=== PATIENT | female | born 1980 | race Caucasian/White ===

== ENCOUNTER 2017-01-29 18:06 | Emergency (ER) | payer MEDICAID ==
[~2017-01-29] VITALS: Ht 165.1 cm; Wt 68.0 kg
[~2017-01-29 18:06] MED LIST: ALPR0.5T10 PO; ALPR1TAB6 PO; AMIT10TA PO; ARIP2TAB2 PO; LEVO750T26 PO; LITH300T30 PO; LITH600C PO; MELO7.5T31 PO; MORP30CP12 PO; NAPR-850 PO; NITR100C6 PO; OXYC10TA6 PO; OXYC15TA60 PO; OXYC20TA2 PO; RISP1TAB3 PO; SENN1TAB7 PO; TOPI200T6 PO; ZOLP-413 PO; ZOLP10TA5 PO
[2017-01-29] MEDS ORDERED: MORPHINE SULFATE 4 MG/ML, 1ML IVPush PRN (19:30)
[2017-01-29] MEDS ORDERED: ONDANSETRON 2MG/ML, 2ML IVPush ONE (19:30)
[2017-01-29] MEDS ORDERED: ONDANSETRON 2MG/ML, 2ML ONE (19:34)
[2017-01-29] MEDS ORDERED: MORPHINE SULFATE 4 MG/ML, 1ML ONE (19:34)
[2017-01-29 19:38] LABS: HEMATOCRIT 41.2 % (34.6-47.8); HEMOGLOBIN 13.7 g/dL (11.7-16.4); WHITE BLOOD COUNT 12.5 x10^3/uL (3.4-10)
[2017-01-29 19:48] LABS: ASPARTATE AMINO TRANSFERASE 9 U/L (15-37); BLOOD UREA NITROGEN 12 mg/dL (7-18)
[2017-01-29 20:52] VITALS: BP 111/72
== END 2017-01-29 22:47 | disposition home or self-care (01) ==
LOC: ED 20:34
DX: R10.9 Unspecified abdominal pain (principal); F31.9 Bipolar disorder, unspecified; F41.9 Anxiety disorder, unspecified; G89.29 Other chronic pain; Z87.891 Personal history of nicotine dependence; Z90.710 Acquired absence of both cervix and uterus
CPT/HCPCS: 36415; 76700; 80053; 81001; 83690; 84703; 85025; 96374; 96375; 99285; J2405

== ENCOUNTER 2017-02-23 16:32 | Emergency (ER) | payer MEDICAID ==
[~2017-02-23] VITALS: Ht 175.3 cm; Wt 76.8 kg
[2017-02-23 17:16] LABS: HEMOGLOBIN 13.5 g/dL (11.7-16.4); WHITE BLOOD COUNT 10.3 x10^3/uL (3.4-10)
[2017-02-23 17:26] LABS: BLOOD UREA NITROGEN 21 mg/dL (7-18)
[2017-02-23 17:33] LABS: ACETAMINOPHEN < 2 mcg/mL (10-30)
[2017-02-23 18:07] LABS: DAU SCREEN DISCLAIMER
[2017-02-23 19:37] VITALS: BP 110/50
== END 2017-02-23 21:43 | disposition home or self-care (01) ==
LOC: ED 18:20
DX: T42.4X1A Poisoning by benzodiazepines, accidental (unintentional), initial encounter (principal); F31.9 Bipolar disorder, unspecified; Y92.89 Other specified places as the place of occurrence of the external cause
CPT/HCPCS: 36415; 80048; 80307; 80329; 82040; 84703; 85025; 93005; 99285; G0479; G0480

== ENCOUNTER 2017-04-10 08:14 | Emergency (ER) | payer MEDICAID ==
[~2017-04-10] VITALS: Ht 167.6 cm; Wt 69.0 kg
[~2017-04-10 08:14] MED LIST changes: +HYDR50TA13 PO; +TRAZ100T15 PO
[2017-04-10 08:15] VITALS: BP 112/72
== END 2017-04-10 10:01 | disposition home or self-care (01) ==
LOC: ED 10:00
DX: H01.001 Unspecified blepharitis right upper eyelid (principal)
CPT/HCPCS: 99283

== ENCOUNTER 2017-04-16 09:22 | Emergency (ER) | payer MEDICAID ==
[~2017-04-16] VITALS: Ht 165.1 cm; Wt 66.2 kg
[2017-04-16 09:24] VITALS: BP 124/77
[2017-04-16] MEDS ORDERED: SODIUM CHLORIDE FLUSH 10ML SYR IVF ONE (10:00)
[2017-04-16 10:05] LABS: WHITE BLOOD COUNT 19.4 x10^3/uL (3.4-10)
[2017-04-16 10:37] LABS: BLOOD UREA NITROGEN 21 mg/dL (7-18)
[2017-04-16] MEDS ORDERED: OMNIPAQUE 350 MG/ML, 75ML BOTTLE ONE (10:56)
== END 2017-04-16 12:12 | disposition home or self-care (01) ==
LOC: ED 09:37
DX: J01.10 Acute frontal sinusitis, unspecified (principal); F41.9 Anxiety disorder, unspecified; F31.9 Bipolar disorder, unspecified; M19.90 Unspecified osteoarthritis, unspecified site
CPT/HCPCS: 36415; 70487; 80048; 82040; 85025; 85651; 99285; Q9967

== ENCOUNTER 2017-05-03 10:12 | Emergency (ER) | payer MEDICAID ==
[~2017-05-03] VITALS: Ht 167.6 cm; Wt 68.9 kg
[2017-05-03] MEDS ORDERED: LIDOCAINE 1%, 10ML ONE (11:17)
[2017-05-03] MEDS ORDERED: LIDOCAINE 1%, 20ML INFIL ONE (11:30)
[2017-05-03 11:52] VITALS: BP 119/59
== END 2017-05-03 11:55 | disposition home or self-care (01) ==
LOC: ED 11:49
DX: H00.033 Abscess of eyelid right eye, unspecified eyelid (principal); F31.9 Bipolar disorder, unspecified; F41.9 Anxiety disorder, unspecified; M19.90 Unspecified osteoarthritis, unspecified site; G89.29 Other chronic pain; Z87.891 Personal history of nicotine dependence
CPT/HCPCS: 10160

== ENCOUNTER 2017-05-30 12:28 | Day surgery (SDC) | payer MEDICAID ==
[~2017-05-30] VITALS: Ht 167.6 cm; Wt 70.8 kg
[~2017-05-30 12:28] MED LIST changes: +BACITRACIN OINT 500U/GM, 15 GM ONE; +CEFAZOLIN 1,000 MG ONE; +DEXAMETHASONE 4 MG/ML, 1ML ONE; +EPINEPHRINE 1 MG/ML, 1ML ONE; +FENTANYL PF 250 MCG/5ML ONE; +LIDOCAINE GEL 2%, 5ML ONE; +LIDOCAINE/PF 1%-EPI 1:200K, 30 ML ONE; +MIDAZOLAM 1 MG/ML, 2ML ONE; +ONDANSETRON 2MG/ML, 2ML ONE; +OXYMETAZOLINE NASAL SPRAY 0.05%, 15ML ONE; +PROPOFOL 10 MG/ML, 20ML ONE; +SUCCINYLCHOLINE 20 MG/ML, 10ML ONE
[2017-05-30 12:58] VITALS: BP 113/76
[2017-05-30] MEDS ORDERED: LIDOCAINE 1%, 2ML SQ PRN (13:00)
[2017-05-30] MEDS ORDERED: PLEASE ENTER HEIGHT AND WEIGHT MC SCH (13:00)
[2017-05-30] MEDS ORDERED: ARIP30TA4 PO (13:07)
[2017-05-30] MEDS: LACTATED RINGERS 1,000 ML IV SCH ×2 (13:15→21:02)
[2017-05-30] MEDS ORDERED: SULF1TAB24 PO (13:26)
[2017-05-30] MEDS ORDERED: TOPI200T6 PO (13:26)
[2017-05-30] MEDS ORDERED: ROCURONIUM 10 MG/ML,10ML ONE (14:01)
[2017-05-30] MEDS ORDERED: FLUORESCEIN OPHTHALMIC 1 MG STRIP HOMEOPHTH ONE (14:38)
[2017-05-30] MEDS ORDERED: EPINEPHRINE TOPICAL SOLN 1 MG/ML, 30ML TP ONE (14:38)
[2017-05-30] MEDS ORDERED: ACETAMINOPHEN 325 MG TABLET PO PRN (15:00)
[2017-05-30] MEDS ORDERED: OXYcodone 5 MG/5 ML ORAL.SOL UDC PO PRN (15:00)
[2017-05-30] MEDS ORDERED: HYDROmorphone 1 MG/ML, 1ML IV PRN (15:00)
[2017-05-30] MEDS ORDERED: METOCLOPRAMIDE 5 MG/ML, 2ML IV PRN (15:00)
[2017-05-30] MEDS ORDERED: hydrALAzine 20 MG/ML, 1ML IV PRN (15:00)
[2017-05-30] MEDS ORDERED: PROMETHAZINE 25 MG/ML, 1ML IV PRN (15:00)
[2017-05-30] MEDS ORDERED: LABETALOL 5MG/ML, 20ML IV PRN (15:00)
[2017-05-30] MEDS ORDERED: MEPERIDINE/PF 25MG/0.5ML IVPush PRN (15:00)
[2017-05-30] MEDS ORDERED: LORazepam 2 MG/ML, 1ML IVPush PRN (15:00)
[2017-05-30] MEDS ORDERED: DIAZEPAM 5 MG/ML, 2ML IVPush PRN (15:00)
[2017-05-30] MEDS ORDERED: MIDAZOLAM 1 MG/ML, 2ML IV PRN (15:00)
[2017-05-30] MEDS ORDERED: ALBUTEROL/IPRATROPIUM 2.5MG/0.5MG, 3 ML NPPB PRN (15:00)
[2017-05-30] MEDS ORDERED: ONDANSETRON 2MG/ML, 2ML IVPush PRN (15:00)
[2017-05-30] MEDS ORDERED: FENTANYL PF 100 MCG/2ML ONE (16:29)
[2017-05-30] MEDS ORDERED: OXYcodone 5 MG/5 ML ORAL.SOL UDC ONE (16:29)
[2017-05-30] MEDS ORDERED: EPINEPHRINE TOPICAL SOLN 1 MG/ML, 30ML ONE (16:30)
[2017-05-30] MEDS ORDERED: FLUORESCEIN OPHTHALMIC 1 MG STRIP ONE (16:30)
[2017-05-30] MEDS: FENTANYL PF 100 MCG/2ML IV PRN ×2 (16:39→16:56)
[2017-05-30] MEDS ORDERED: morphine SULFATE 10 MG/ML, 1ML ONE (18:16)
[2017-05-30] MEDS ORDERED: morphine SULFATE 10 MG/ML, 1ML IVPush PRN (18:30)
[2017-05-30] MEDS ORDERED: LACTATED RINGERS 1,000 ML IV SCH (20:00)
[2017-05-30] MEDS ORDERED: MORPHINE SULFATE 4 MG/ML, 1ML IVPush PRN (20:00)
[2017-05-30] MEDS ORDERED: TRAZODONE 100MG TABLET PO PRN (20:00)
[2017-05-30] MEDS ORDERED: OXYcodone/APAP 5/325MG TABLET PO PRN (20:00)
[2017-05-30] MEDS ORDERED: TOPIRAMATE 100 MG TABLET PO SCH (21:00)
[2017-05-30] MEDS ORDERED: AMITRIPTYLINE 10 MG TABLET PO SCH (21:00)
[2017-05-30] MEDS ORDERED: hydrOXyzine 50MG TABLET PO SCH (21:00)
[2017-05-31] MEDS ORDERED: ARIPIPRAZOLE 15 MG TABLET PO SCH (09:00)
== END 2017-05-30 22:14 | disposition home or self-care (01) ==
LOC: OUT 12:28 → 4NOR 19:23 → OUT 22:14
PROVIDERS: ATTEND Otolaryngology
DX: J32.1 Chronic frontal sinusitis (principal); J32.0 Chronic maxillary sinusitis; J34.2 Deviated nasal septum; J34.1 Cyst and mucocele of nose and nasal sinus; J34.3 Hypertrophy of nasal turbinates
CPT/HCPCS: 30140; 30520; 31253; 31256; 61782; 87070; 87075; 87205; 88304; 88311; J0171; J0330; J0690; J1100; J2250; J2270; J2405; J2704; J3010; J3490; J7120

== ENCOUNTER 2017-06-14 10:23 | Inpatient (IN) | payer MEDICAID ==
[~2017-06-14] VITALS: Ht 167.6 cm; Wt 81.1 kg
[~2017-06-14 10:23] MED LIST changes: +ARIP30TA4 PO; -BACITRACIN OINT 500U/GM, 15 GM ONE; -CEFAZOLIN 1,000 MG ONE; -DEXAMETHASONE 4 MG/ML, 1ML ONE; -EPINEPHRINE 1 MG/ML, 1ML ONE; -FENTANYL PF 250 MCG/5ML ONE; -LIDOCAINE GEL 2%, 5ML ONE; -LIDOCAINE/PF 1%-EPI 1:200K, 30 ML ONE; -MIDAZOLAM 1 MG/ML, 2ML ONE; -ONDANSETRON 2MG/ML, 2ML ONE; -OXYMETAZOLINE NASAL SPRAY 0.05%, 15ML ONE; -PROPOFOL 10 MG/ML, 20ML ONE; -SUCCINYLCHOLINE 20 MG/ML, 10ML ONE; +SULF1TAB24 PO
[2017-06-14] MEDS ORDERED: MORPHINE SULFATE 4 MG/ML, 1ML ONE (11:55)
[2017-06-14] MEDS ORDERED: ONDANSETRON 2MG/ML, 2ML ONE (11:55)
[2017-06-14] MEDS ORDERED: ONDANSETRON 2MG/ML, 2ML IVPush ONE (12:00)
[2017-06-14] MEDS ORDERED: SODIUM CHLORIDE 0.9% 1,000ML IVBOLUS ONE (12:00)
[2017-06-14] MEDS ORDERED: MORPHINE SULFATE 4 MG/ML, 1ML IVPush PRN (12:00)
[2017-06-14] MEDS ORDERED: AMPICILLIN/SULBACTAM 3 GM in SODIUM CHLORIDE 0.9% 100 ML IV ONE (12:00)
[2017-06-14 12:12] LABS: BASOPHILS # (AUTO) 0.06 x10^3/uL (0-0.1); BASOPHILS % (AUTO) 0 % (0-1); EOSINOPHILS % (AUTO) 1 % (1-7); LYMPHOCYTES # (AUTO) 1.96 x10^3/uL (1-3.4); LYMPHOCYTES % (AUTO) 16 % (22-44); MD NO; MEAN CORPUSCULAR HEMOGLOBIN 27.6 pg (27.0-34.8); MEAN CORPUSCULAR HGB CONC 32.3 g/dL (32.4-35.8); MEAN CORPUSCULAR VOLUME 85.4 fL (80-100); MEAN PLATELET VOLUME 7.4 fL (7.4-10.4); MONOCYTES # (AUTO) 0.84 x10^3/uL (0.2-0.8); MONOCYTES % (AUTO) 7 % (2-9); NEUTROPHILS # (AUTO) 9.74 x10^3/uL (1.8-6.8); NEUTROPHILS % (AUTO) 77 % (42-75); PLATELET COUNT 380 x10^3/uL (130-400); RED CELL DISTRIBUTION WIDTH 18.1 % (9.6-15.2)
[2017-06-14] MEDS ORDERED: IBUP200T49 PO (12:16)
[2017-06-14] MEDS ORDERED: AMIT10TA PO (12:16)
[2017-06-14 12:19] LABS: ALBUMIN 3.7 g/dL (3.4-5.0); ANION GAP 9 mmol/L (5-15); CALCIUM 8.4 mg/dL (8.5-10.1); CHLORIDE 113 mmol/L (98-107); CREATININE 0.66 mg/dL (0.55-1.02)
[2017-06-14] MEDS ORDERED: ENALAPRILAT 1.25 MG/ML, 2ML IVPush PRN (12:30)
[2017-06-14] MEDS ORDERED: ONDANSETRON 2MG/ML, 2ML IVPush PRN (12:30)
[2017-06-14] MEDS ORDERED: ONDANSETRON ODT 4 MG PO PRN (12:30)
[2017-06-14] MEDS ORDERED: ACETAMINOPHEN 325 MG TABLET PO PRN (12:30)
[2017-06-14 12:49] VITALS: BP 101/65
[2017-06-14] MEDS ORDERED: AMPICILLIN/SULBACTAM 3 GM in SODIUM CHLORIDE 0.9% 100 ML IV SCH (13:00)
[2017-06-14] MEDS ORDERED: IBUPROFEN 600 MG TABLET PO PRN (13:00)
[2017-06-14 14:00] VITALS: BP 110/60
[2017-06-14] MEDS ORDERED: OMNIPAQUE 350 MG/ML, 75ML BOTTLE ONE (15:42)
[2017-06-14] MEDS: HYDROcodone/APAP 5/325 TABLET PO PRN ×2 (16:06→21:04)
[2017-06-14] MEDS: morphine SULFATE 10 MG/ML, 1ML IVPush PRN (18:08)
[2017-06-14 21:00] VITALS: BP 91/62
[2017-06-14] MEDS: AMITRIPTYLINE 10 MG TABLET PO SCH (21:03)
[2017-06-14] MEDS: ERTAPENEM 1 GM in SODIUM CHLORIDE 0.9% 50 ML IV SCH (21:03)
[2017-06-14] MEDS: TOPIRAMATE 100 MG TABLET PO SCH (21:04)
[2017-06-14] MEDS: ARIPIPRAZOLE 15 MG TABLET PO SCH (21:04)
[2017-06-14] MEDS: hydrOXyzine 50MG TABLET PO SCH (21:05)
[2017-06-14] MEDS: TRAZODONE 100MG TABLET PO PRN (22:17)
[2017-06-15] VITALS (7 sets, daily range): BP systolic 90–101; BP diastolic 59–70
[2017-06-15] MEDS: morphine SULFATE 10 MG/ML, 1ML IVPush PRN ×3 (01:38→22:52)
[2017-06-15] MEDS: HYDROcodone/APAP 5/325 TABLET PO PRN ×4 (04:39→21:28)
[2017-06-15 04:49] LABS: BASOPHILS # (AUTO) 0.04 x10^3/uL (0-0.1); BASOPHILS % (AUTO) 0 % (0-1); EOSINOPHILS % (AUTO) 2 % (1-7); LYMPHOCYTES # (AUTO) 2.29 x10^3/uL (1-3.4); LYMPHOCYTES % (AUTO) 21 % (22-44); MD NO; MEAN CORPUSCULAR HEMOGLOBIN 28.5 pg (27.0-34.8); MEAN CORPUSCULAR HGB CONC 33.6 g/dL (32.4-35.8); MEAN CORPUSCULAR VOLUME 84.9 fL (80-100); MEAN PLATELET VOLUME 7.1 fL (7.4-10.4); MONOCYTES # (AUTO) 0.88 x10^3/uL (0.2-0.8); MONOCYTES % (AUTO) 8 % (2-9); NEUTROPHILS # (AUTO) 7.63 x10^3/uL (1.8-6.8); NEUTROPHILS % (AUTO) 69 % (42-75); PLATELET COUNT 317 x10^3/uL (130-400); RED BLOOD COUNT 3.94 x10^6/uL (3.82-5.3); RED CELL DISTRIBUTION WIDTH 18.2 % (9.6-15.2)
[2017-06-15] MEDS: KETOROLAC 30 MG/1 ML IVPush SCH ×3 (10:31→21:15)
[2017-06-15] MEDS: hydrOXyzine 50MG TABLET PO SCH ×2 (10:31→21:15)
[2017-06-15] MEDS ORDERED: ARTIFICIAL TEARS OINT 3.5 GM EACHEYE PRN (12:30)
[2017-06-15] MEDS ORDERED: ARTIFICIAL TEARS 15 DROP/ML BOTTLE EACHEYE PRN (12:30)
[2017-06-15] MEDS: ARIPIPRAZOLE 15 MG TABLET PO SCH (21:14)
[2017-06-15] MEDS: AMITRIPTYLINE 10 MG TABLET PO SCH (21:14)
[2017-06-15] MEDS: TOPIRAMATE 100 MG TABLET PO SCH (21:14)
[2017-06-15] MEDS: ERTAPENEM 1 GM in SODIUM CHLORIDE 0.9% 50 ML IV SCH (21:15)
[2017-06-15] MEDS: TRAZODONE 100MG TABLET PO PRN (22:40)
[2017-06-16 01:15] VITALS: BP 89/60
[2017-06-16] MEDS: KETOROLAC 30 MG/1 ML IVPush SCH ×4 (02:36→20:17)
[2017-06-16] MEDS: HYDROcodone/APAP 5/325 TABLET PO PRN (02:37)
[2017-06-16 06:21] VITALS: BP 88/52
[2017-06-16 08:08] VITALS: BP 95/59
[2017-06-16] MEDS ORDERED: POLYETHYLENE GLYCOL 17 GM PACKET NG ONE (08:30)
[2017-06-16] MEDS: hydrOXyzine 50MG TABLET PO SCH ×2 (09:18→20:17)
[2017-06-16] MEDS: HYDROcodone/APAP 10/325 MG TABLET PO PRN ×3 (09:18→20:17)
[2017-06-16] MEDS ORDERED: MORPHINE SULFATE 4 MG/ML, 1ML ONE (12:19)
[2017-06-16] MEDS: morphine SULFATE 10 MG/ML, 1ML IVPush PRN (12:27)
[2017-06-16 15:45] VITALS: BP 81/51
[2017-06-16 16:24] VITALS: BP 88/59
[2017-06-16 19:11] VITALS: BP 91/57
[2017-06-16] MEDS: TOPIRAMATE 100 MG TABLET PO SCH (20:16)
[2017-06-16] MEDS: AMITRIPTYLINE 10 MG TABLET PO SCH (20:17)
[2017-06-16] MEDS: DOCUSATE 100 MG CAPSULE PO PRN (20:17)
[2017-06-16] MEDS: ERTAPENEM 1 GM in SODIUM CHLORIDE 0.9% 50 ML IV SCH (20:17)
[2017-06-16] MEDS: ARIPIPRAZOLE 15 MG TABLET PO SCH (20:17)
[2017-06-16] MEDS: TRAZODONE 100MG TABLET PO PRN (21:21)
[2017-06-17 01:22] VITALS: BP 105/71
[2017-06-17] MEDS: KETOROLAC 30 MG/1 ML IVPush SCH ×4 (01:41→20:12)
[2017-06-17] MEDS: HYDROcodone/APAP 10/325 MG TABLET PO PRN ×4 (01:41→20:12)
[2017-06-17] MEDS: morphine SULFATE 10 MG/ML, 1ML IVPush PRN ×3 (04:19→16:29)
[2017-06-17] MEDS: hydrOXyzine 50MG TABLET PO SCH ×2 (09:04→20:12)
[2017-06-17] MEDS: DOCUSATE 100 MG CAPSULE PO PRN (09:16)
[2017-06-17 09:17] VITALS: BP 95/68
[2017-06-17] MEDS ORDERED: BISACODYL 10 MG SUPP PR PRN (11:00)
[2017-06-17 15:57] VITALS: BP 92/59
[2017-06-17 19:33] VITALS: BP 91/63
[2017-06-17] MEDS: ERTAPENEM 1 GM in SODIUM CHLORIDE 0.9% 50 ML IV SCH (20:12)
[2017-06-17] MEDS: SENNA/DOCUSATE TABLET PO SCH (20:12)
[2017-06-17] MEDS: AMITRIPTYLINE 10 MG TABLET PO SCH (20:12)
[2017-06-17] MEDS: ARIPIPRAZOLE 15 MG TABLET PO SCH (20:13)
[2017-06-17] MEDS: TOPIRAMATE 100 MG TABLET PO SCH (21:24)
[2017-06-17] MEDS: TRAZODONE 100MG TABLET PO PRN (21:24)
[2017-06-18 01:33] VITALS: BP 105/71
[2017-06-18] MEDS: KETOROLAC 30 MG/1 ML IVPush SCH ×3 (01:36→15:06)
[2017-06-18] MEDS: HYDROcodone/APAP 10/325 MG TABLET PO PRN ×4 (01:36→21:08)
[2017-06-18] MEDS: morphine SULFATE 10 MG/ML, 1ML IVPush PRN ×4 (04:13→23:50)
[2017-06-18 08:15] VITALS: BP 94/63
[2017-06-18] MEDS: POLYETHYLENE GLYCOL 17 GM PACKET PO SCH (09:25)
[2017-06-18] MEDS: hydrOXyzine 50MG TABLET PO SCH ×2 (09:25→20:00)
[2017-06-18] MEDS: CEFTAROLINE 600 MG in SODIUM CHLORIDE 0.9% 100 ML IV SCH ×2 (11:43→23:12)
[2017-06-18 15:00] VITALS: BP 95/64
[2017-06-18] MEDS: AMITRIPTYLINE 10 MG TABLET PO SCH (20:00)
[2017-06-18] MEDS: SENNA/DOCUSATE TABLET PO SCH (20:00)
[2017-06-18] MEDS: TOPIRAMATE 100 MG TABLET PO SCH (20:00)
[2017-06-18] MEDS: ARIPIPRAZOLE 15 MG TABLET PO SCH (20:01)
[2017-06-18 21:01] VITALS: BP 100/67
[2017-06-19 03:46] VITALS: BP 103/71
[2017-06-19] MEDS: HYDROcodone/APAP 10/325 MG TABLET PO PRN ×4 (03:54→19:50)
[2017-06-19 05:43] LABS: BASOPHILS # (AUTO) 0.07 x10^3/uL (0-0.1); BASOPHILS % (AUTO) 1 % (0-1); EOSINOPHILS # (AUTO) 0.33 x10^3/uL (0-0.4); EOSINOPHILS % (AUTO) 5 % (1-7); LYMPHOCYTES % (AUTO) 42 % (22-44); MD NO; MEAN CORPUSCULAR HEMOGLOBIN 27.7 pg (27.0-34.8); MEAN CORPUSCULAR HGB CONC 32.5 g/dL (32.4-35.8); MEAN CORPUSCULAR VOLUME 85.3 fL (80-100); MEAN PLATELET VOLUME 6.8 fL (7.4-10.4); MONOCYTES # (AUTO) 0.46 x10^3/uL (0.2-0.8); MONOCYTES % (AUTO) 7 % (2-9); NEUTROPHILS # (AUTO) 2.86 x10^3/uL (1.8-6.8); NEUTROPHILS % (AUTO) 45 % (42-75); PLATELET COUNT 402 x10^3/uL (130-400); RED BLOOD COUNT 4.21 x10^6/uL (3.82-5.3); RED CELL DISTRIBUTION WIDTH 17.5 % (9.6-15.2)
[2017-06-19 06:19] LABS: CHLORIDE 110 mmol/L (98-107)
[2017-06-19 06:38] LABS: ALANINE AMINOTRANSFERASE 18 U/L (12-78); ALBUMIN 2.9 g/dL (3.4-5.0); ALKALINE PHOSPHATASE 68 U/L (45-117); BILIRUBIN,TOTAL 0.3 mg/dL (0.2-1.0); CALCIUM 8.4 mg/dL (8.5-10.1); CREATININE 0.75 mg/dL (0.55-1.02); TOTAL PROTEIN 5.9 g/dL (6.4-8.2)
[2017-06-19 06:40] LABS: ANION GAP 6 mmol/L (5-15)
[2017-06-19 06:55] LABS: HCT (SEDRATE) 35.9 % (34.6-47.8)
[2017-06-19] MEDS: morphine SULFATE 10 MG/ML, 1ML IVPush PRN ×4 (08:09→23:04)
[2017-06-19] MEDS: DOCUSATE 100 MG CAPSULE PO PRN (08:13)
[2017-06-19] MEDS: POLYETHYLENE GLYCOL 17 GM PACKET PO SCH (08:13)
[2017-06-19] MEDS: hydrOXyzine 50MG TABLET PO SCH ×2 (08:13→19:50)
[2017-06-19 08:26] VITALS: BP 106/74
[2017-06-19] MEDS: CEFTAROLINE 600 MG in SODIUM CHLORIDE 0.9% 100 ML IV SCH ×2 (11:43→23:05)
[2017-06-19 12:08] VITALS: BP 107/72
[2017-06-19] MEDS ORDERED: METHYLNALTREXONE 12 MG/0.6 ML SQ ONE (13:00)
[2017-06-19] MEDS ORDERED: PICC FLUSH PROTOCOL XX SCH (14:00)
[2017-06-19 19:00] VITALS: BP 105/69
[2017-06-19] MEDS: AMITRIPTYLINE 10 MG TABLET PO SCH (19:50)
[2017-06-19] MEDS: TOPIRAMATE 100 MG TABLET PO SCH (19:50)
[2017-06-19] MEDS: ARIPIPRAZOLE 15 MG TABLET PO SCH (19:50)
[2017-06-19] MEDS: TRAZODONE 100MG TABLET PO PRN (23:21)
[2017-06-20 03:51] VITALS: BP 93/58
[2017-06-20] MEDS: morphine SULFATE 10 MG/ML, 1ML IVPush PRN ×3 (03:56→21:58)
[2017-06-20 04:35] LABS: BASOPHILS # (AUTO) 0.05 x10^3/uL (0-0.1); BASOPHILS % (AUTO) 1 % (0-1); EOSINOPHILS # (AUTO) 0.25 x10^3/uL (0-0.4); EOSINOPHILS % (AUTO) 4 % (1-7); LYMPHOCYTES # (AUTO) 2.13 x10^3/uL (1-3.4); LYMPHOCYTES % (AUTO) 38 % (22-44); MD NO; MEAN CORPUSCULAR HGB CONC 33.1 g/dL (32.4-35.8); MEAN CORPUSCULAR VOLUME 84.5 fL (80-100); MEAN PLATELET VOLUME 6.8 fL (7.4-10.4); MONOCYTES # (AUTO) 0.39 x10^3/uL (0.2-0.8); MONOCYTES % (AUTO) 7 % (2-9); NEUTROPHILS # (AUTO) 2.85 x10^3/uL (1.8-6.8); NEUTROPHILS % (AUTO) 50 % (42-75); PLATELET COUNT 405 x10^3/uL (130-400); RED BLOOD COUNT 4.24 x10^6/uL (3.82-5.3); RED CELL DISTRIBUTION WIDTH 17.5 % (9.6-15.2)
[2017-06-20 04:49] LABS: ALBUMIN 3.3 g/dL (3.4-5.0); ANION GAP 8 mmol/L (5-15); CHLORIDE 109 mmol/L (98-107)
[2017-06-20 04:52] LABS: ALANINE AMINOTRANSFERASE 15 U/L (12-78); ALKALINE PHOSPHATASE 75 U/L (45-117); BILIRUBIN,TOTAL 0.3 mg/dL (0.2-1.0); TOTAL PROTEIN 6.3 g/dL (6.4-8.2)
[2017-06-20] MEDS ORDERED: OXYMETAZOLINE NASAL SPRAY 0.05%, 15ML ONE (06:20)
[2017-06-20] MEDS ORDERED: EPINEPHRINE 1 MG/ML, 1ML ONE (06:20)
[2017-06-20] MEDS ORDERED: FLUORESCEIN OPHTHALMIC 1 MG STRIP ONE (06:20)
[2017-06-20] MEDS ORDERED: BACITRACIN OINT 500U/GM, 15 GM ONE (06:20)
[2017-06-20] MEDS ORDERED: LIDOCAINE 1%, 20ML ONE (06:21)
[2017-06-20] MEDS ORDERED: EPINEPHRINE TOPICAL SOLN 1 MG/ML, 30ML ONE (06:52)
[2017-06-20 07:18] VITALS: BP 90/60
[2017-06-20] MEDS: hydrOXyzine 50MG TABLET PO SCH ×2 (09:00→19:43)
[2017-06-20] MEDS: POLYETHYLENE GLYCOL 17 GM PACKET PO SCH (09:00)
[2017-06-20] MEDS ORDERED: MIDAZOLAM 1 MG/ML, 2ML ONE (09:17)
[2017-06-20] MEDS ORDERED: FENTANYL PF 250 MCG/5ML ONE ×2 (09:17→12:53)
[2017-06-20] MEDS ORDERED: PROPOFOL 10 MG/ML, 20ML ONE (09:18)
[2017-06-20] MEDS ORDERED: ROCURONIUM 10 MG/ML,10ML ONE (09:18)
[2017-06-20] MEDS ORDERED: GLYCOPYRROLATE 0.4 MG/2 ML, 2ML ONE (09:19)
[2017-06-20] MEDS ORDERED: ONDANSETRON 2MG/ML, 2ML ONE (09:19)
[2017-06-20] MEDS ORDERED: NEOSTIGMINE 1 MG/ML, 10ML ONE (09:19)
[2017-06-20] MEDS ORDERED: DEXAMETHASONE 4 MG/ML, 1ML ONE ×2 (09:19)
[2017-06-20] MEDS ORDERED: MEPERIDINE/PF 25MG/0.5ML IVPush PRN (11:30)
[2017-06-20] MEDS ORDERED: HYDROmorphone 1 MG/ML, 1ML IV PRN (11:30)
[2017-06-20] MEDS ORDERED: ONDANSETRON 2MG/ML, 2ML IVPush PRN (11:30)
[2017-06-20] MEDS ORDERED: OXYcodone 5 MG/5 ML ORAL.SOL UDC PO PRN (11:30)
[2017-06-20] MEDS ORDERED: PROMETHAZINE 12.5 MG SUPP PR PRN (11:30)
[2017-06-20] MEDS ORDERED: LABETALOL 5MG/ML, 20ML IV PRN (11:30)
[2017-06-20] MEDS ORDERED: hydrALAzine 20 MG/ML, 1ML IV PRN (11:30)
[2017-06-20] MEDS ORDERED: ACETAMINOPHEN 325 MG TABLET PO PRN (11:30)
[2017-06-20] MEDS: CEFTAROLINE 600 MG in SODIUM CHLORIDE 0.9% 100 ML IV SCH ×2 (11:55→23:06)
[2017-06-20] MEDS ORDERED: LIDOCAINE 1%, 20ML INFIL ONE (12:23)
[2017-06-20] MEDS ORDERED: EPINEPHRINE TOPICAL SOLN 1 MG/ML, 30ML TP ONE (12:30)
[2017-06-20] MEDS ORDERED: BALANCED SALT OPHTH IRRIG SOLN 18ML ONE (15:51)
[2017-06-20] MEDS ORDERED: OXYcodone 5 MG/5 ML ORAL.SOL UDC ONE (16:19)
[2017-06-20] MEDS ORDERED: FENTANYL PF 100 MCG/2ML ONE (16:19)
[2017-06-20] MEDS ORDERED: ACETAMINOPHEN 650 MG/20.3 ML UDC ONE (16:19)
[2017-06-20] MEDS: FENTANYL PF 100 MCG/2ML IV PRN ×3 (16:25→16:58)
[2017-06-20] MEDS: HYDROcodone/APAP 10/325 MG TABLET PO PRN (19:42)
[2017-06-20] MEDS: AMITRIPTYLINE 10 MG TABLET PO SCH (19:42)
[2017-06-20] MEDS: ARIPIPRAZOLE 15 MG TABLET PO SCH (19:42)
[2017-06-20] MEDS: TOPIRAMATE 100 MG TABLET PO SCH (19:42)
[2017-06-20 20:00] VITALS: BP_SYST 110; BP_SYST 162; BP_DIAS 100; BP_DIAS 62
[2017-06-20] MEDS: TRAZODONE 100MG TABLET PO PRN (21:58)
[2017-06-21] MEDS: HYDROcodone/APAP 10/325 MG TABLET PO PRN ×3 (00:55→16:38)
[2017-06-21 02:00] VITALS: BP 102/59
[2017-06-21] MEDS: morphine SULFATE 10 MG/ML, 1ML IVPush PRN ×3 (03:03→19:59)
[2017-06-21 03:37] LABS: BASOPHILS # (AUTO) 0.02 x10^3/uL (0-0.1); BASOPHILS % (AUTO) 0 % (0-1); EOSINOPHILS # (AUTO) 0.01 x10^3/uL (0-0.4); EOSINOPHILS % (AUTO) 0 % (1-7); LYMPHOCYTES # (AUTO) 1.55 x10^3/uL (1-3.4); LYMPHOCYTES % (AUTO) 20 % (22-44); MD NO; MEAN CORPUSCULAR HEMOGLOBIN 27.7 pg (27.0-34.8); MEAN CORPUSCULAR HGB CONC 32.9 g/dL (32.4-35.8); MEAN CORPUSCULAR VOLUME 84.3 fL (80-100); MEAN PLATELET VOLUME 6.9 fL (7.4-10.4); MONOCYTES # (AUTO) 0.45 x10^3/uL (0.2-0.8); MONOCYTES % (AUTO) 6 % (2-9); NEUTROPHILS % (AUTO) 74 % (42-75); PLATELET COUNT 448 x10^3/uL (130-400); RED BLOOD COUNT 4.52 x10^6/uL (3.82-5.3); RED CELL DISTRIBUTION WIDTH 16.6 % (9.6-15.2)
[2017-06-21 06:52] VITALS: BP 96/54
[2017-06-21] MEDS: POLYETHYLENE GLYCOL 17 GM PACKET PO SCH (07:27)
[2017-06-21] MEDS: hydrOXyzine 50MG TABLET PO SCH ×2 (07:27→19:59)
[2017-06-21] MEDS ORDERED: SUMATRIPTAN 25 MG TABLET PO PRN (12:00)
[2017-06-21] MEDS: CEFTAROLINE 600 MG in SODIUM CHLORIDE 0.9% 100 ML IV SCH (12:03)
[2017-06-21] MEDS ORDERED: SUMATRIPTAN 50 MG TABLET ONE (12:57)
[2017-06-21 13:13] VITALS: BP 92/54
[2017-06-21 19:47] VITALS: BP 94/53
[2017-06-21] MEDS: AMITRIPTYLINE 10 MG TABLET PO SCH (20:00)
[2017-06-21] MEDS: ARIPIPRAZOLE 15 MG TABLET PO SCH (20:00)
[2017-06-21] MEDS: TOPIRAMATE 100 MG TABLET PO SCH (20:00)
[2017-06-21] MEDS: TRAZODONE 100MG TABLET PO PRN (20:06)
[2017-06-22] MEDS: CEFTAROLINE 600 MG in SODIUM CHLORIDE 0.9% 100 ML IV SCH (00:30)
[2017-06-22] MEDS: HYDROcodone/APAP 10/325 MG TABLET PO PRN ×3 (00:35→15:28)
[2017-06-22 03:35] VITALS: BP 98/60
[2017-06-22] MEDS: morphine SULFATE 10 MG/ML, 1ML IVPush PRN ×3 (04:36→20:56)
[2017-06-22 05:00] LABS: BASOPHILS # (AUTO) 0.08 x10^3/uL (0-0.1); BASOPHILS % (AUTO) 1 % (0-1); EOSINOPHILS # (AUTO) 0.32 x10^3/uL (0-0.4); EOSINOPHILS % (AUTO) 4 % (1-7); LYMPHOCYTES # (AUTO) 2.65 x10^3/uL (1-3.4); LYMPHOCYTES % (AUTO) 35 % (22-44); MD NO; MEAN CORPUSCULAR HEMOGLOBIN 27.4 pg (27.0-34.8); MEAN CORPUSCULAR HGB CONC 32.8 g/dL (32.4-35.8); MEAN CORPUSCULAR VOLUME 83.5 fL (80-100); MEAN PLATELET VOLUME 6.9 fL (7.4-10.4); MONOCYTES # (AUTO) 0.45 x10^3/uL (0.2-0.8); MONOCYTES % (AUTO) 6 % (2-9); NEUTROPHILS # (AUTO) 3.98 x10^3/uL (1.8-6.8); NEUTROPHILS % (AUTO) 53 % (42-75); PLATELET COUNT 400 x10^3/uL (130-400); RED BLOOD COUNT 4.53 x10^6/uL (3.82-5.3); RED CELL DISTRIBUTION WIDTH 17.2 % (9.6-15.2)
[2017-06-22 08:13] VITALS: BP 91/55
[2017-06-22] MEDS: hydrOXyzine 50MG TABLET PO SCH ×2 (09:12→20:56)
[2017-06-22] MEDS: POLYETHYLENE GLYCOL 17 GM PACKET PO SCH (09:12)
[2017-06-22] MEDS: DOXYCYCLINE 100MG TABLET PO SCH ×2 (12:03→20:58)
[2017-06-22] MEDS: ERTAPENEM 1 GM in SODIUM CHLORIDE 0.9% 50 ML IV SCH (12:03)
[2017-06-22 13:40] VITALS: BP 91/47
[2017-06-22 19:54] VITALS: BP 90/42
[2017-06-22] MEDS: TRAZODONE 100MG TABLET PO PRN (20:56)
[2017-06-22] MEDS: TOPIRAMATE 100 MG TABLET PO SCH (20:57)
[2017-06-22] MEDS: AMITRIPTYLINE 10 MG TABLET PO SCH (20:58)
[2017-06-22] MEDS: ARIPIPRAZOLE 15 MG TABLET PO SCH (20:58)
[2017-06-23] MEDS: HYDROcodone/APAP 10/325 MG TABLET PO PRN ×3 (02:33→16:07)
[2017-06-23 04:00] VITALS: BP 90/44
[2017-06-23 07:15] VITALS: BP 85/50
[2017-06-23] MEDS: POLYETHYLENE GLYCOL 17 GM PACKET PO SCH (08:57)
[2017-06-23] MEDS: DOXYCYCLINE 100MG TABLET PO SCH (08:57)
[2017-06-23] MEDS: hydrOXyzine 50MG TABLET PO SCH (08:57)
[2017-06-23] MEDS ORDERED: MORPHINE SULFATE 4 MG/ML, 1ML ONE ×2 (11:34→17:33)
[2017-06-23] MEDS: morphine SULFATE 10 MG/ML, 1ML IVPush PRN ×2 (11:39→17:36)
[2017-06-23] MEDS: ERTAPENEM 1 GM in SODIUM CHLORIDE 0.9% 50 ML IV SCH (11:40)
[2017-06-23] MEDS ORDERED: SUMA25TA3 PO (15:54)
[2017-06-23] MEDS ORDERED: HYDR-3307 PO (15:54)
[2017-06-24] MEDS ORDERED: POLY17PO5 PO (14:17)
== END 2017-06-23 17:45 | disposition home or self-care (01) | DRG 121 ==
LOC: ED 11:34 → EDIP 11:35 → ED 11:44 → 3NE 12:42
PROVIDERS: ADMIT Family Medicine; ATTEND Family Medicine
PROC: 02HV33Z Insertion of Infusion Device into Superior Vena Cava, Percutaneous Approach (ICD-10-PCS; 2017-06-19)
PROC: 099Q4ZZ Drainage of Right Maxillary Sinus, Percutaneous Endoscopic Approach (ICD-10-PCS; 2017-06-20)
PROC: 8E09XBG Computer Assisted Procedure of Head and Neck Region, With Computerized Tomography (ICD-10-PCS; 2017-06-20)
PROC: 099R4ZZ Drainage of Left Maxillary Sinus, Percutaneous Endoscopic Approach (ICD-10-PCS; principal; 2017-06-20 11:30)
DX: H05.011 Cellulitis of right orbit (principal); L03.213 Periorbital cellulitis; H05.02 Osteomyelitis of orbit; F19.20 Other psychoactive substance dependence, uncomplicated; F41.1 Generalized anxiety disorder; G40.909 Epilepsy, unspecified, not intractable, without status epilepticus; G43.909 Migraine, unspecified, not intractable, without status migrainosus; J34.2 Deviated nasal septum; G89.29 Other chronic pain; J32.0 Chronic maxillary sinusitis; H53.2 Diplopia; F31.9 Bipolar disorder, unspecified; M19.90 Unspecified osteoarthritis, unspecified site; F12.90 Cannabis use, unspecified, uncomplicated; F41.9 Anxiety disorder, unspecified; G47.00 Insomnia, unspecified; Z98.84 Bariatric surgery status; Z87.891 Personal history of nicotine dependence; Z82.5 Family history of asthma and other chronic lower respiratory diseases; Z82.49 Family history of ischemic heart disease and other diseases of the circulatory system; Z90.710 Acquired absence of both cervix and uterus; Z83.3 Family history of diabetes mellitus; Z82.3 Family history of stroke
CPT/HCPCS: 36415; 36569; 70486; 70487; 76937; 77001; 80048; 80053; 82040; 83605; 85025; 85651; 86140; 87040; 87070; 87077; 87186; 87205; 88304; 88311; 96374; 96375; J0171; J0295; J0712; J1100; J1335; J1885; J2250; J2405; J2704; J2710; J3010; J3490; Q9967; C1751; J2270; J7030

== ENCOUNTER 2017-07-11 10:57 | Observation (INO) | payer MEDICAID, OTHER ==
[~2017-07-11] VITALS: Ht 167.6 cm; Wt 67.0 kg
[~2017-07-11 10:57] MED LIST changes: +BACITRACIN OINT 500U/GM, 15 GM ONE; +EPINEPHRINE 1 MG/ML, 1ML ONE; +FLUORESCEIN OPHTHALMIC 1 MG STRIP ONE; +HYDR-3307 PO; +IBUP200T49 PO; +LIDOCAINE 1%, 20ML ONE; +OXYMETAZOLINE NASAL SPRAY 0.05%, 15ML ONE; +POLY17PO5 PO; +SUMA25TA3 PO
[2017-07-11] MEDS ORDERED: LACTATED RINGERS 1,000 ML IV SCH (11:23)
[2017-07-11 11:25] VITALS: BP 83/47
[2017-07-11] MEDS ORDERED: GABAPENTIN 300 MG CAPSULE PO STA (11:29)
[2017-07-11] MEDS ORDERED: SCOPOLAMINE PATCH, 1.5MG PATCH.TD72 TD STA (11:29)
[2017-07-11] MEDS ORDERED: OxyconTIN ER 20 MG TAB.ER PO ONE (11:30)
[2017-07-11] MEDS ORDERED: ACETAMINOPHEN 500 MG TABLET PO ONE (11:30)
[2017-07-11] MEDS ORDERED: PLEASE ENTER HEIGHT AND WEIGHT MC SCH (12:30)
[2017-07-11] MEDS ORDERED: MIDAZOLAM 1 MG/ML, 2ML ONE (13:35)
[2017-07-11] MEDS ORDERED: FENTANYL PF 250 MCG/5ML ONE (13:36)
[2017-07-11] MEDS ORDERED: morphine SULFATE 10 MG/ML, 1ML IV PRN (14:00)
[2017-07-11] MEDS ORDERED: ALBUTEROL SULFATE 2.5 MG/3 ML NPPB PRN (14:00)
[2017-07-11] MEDS ORDERED: MIDAZOLAM 1 MG/ML, 2ML IV PRN (14:00)
[2017-07-11] MEDS ORDERED: FENTANYL PF 100 MCG/2ML IV PRN (14:00)
[2017-07-11] MEDS ORDERED: PROMETHAZINE 12.5 MG SUPP PR PRN (14:00)
[2017-07-11] MEDS ORDERED: OXYcodone 5 MG/5 ML ORAL.SOL UDC PO PRN (14:00)
[2017-07-11] MEDS ORDERED: ONDANSETRON 2MG/ML, 2ML IVPush PRN ×2 (14:00→19:30)
[2017-07-11] MEDS ORDERED: LABETALOL 5MG/ML, 20ML IV PRN (14:00)
[2017-07-11] MEDS ORDERED: MEPERIDINE/PF 25MG/0.5ML IVPush PRN (14:00)
[2017-07-11] MEDS ORDERED: hydrALAzine 20 MG/ML, 1ML IV PRN (14:00)
[2017-07-11] MEDS ORDERED: PROPOFOL 10 MG/ML, 20ML ONE (14:06)
[2017-07-11] MEDS ORDERED: SUCCINYLCHOLINE 20 MG/ML, 10ML ONE (14:06)
[2017-07-11] MEDS ORDERED: KETOROLAC 30 MG/1 ML ONE (14:06)
[2017-07-11] MEDS ORDERED: ROCURONIUM 10MG/ML,5ML ONE (14:06)
[2017-07-11] MEDS ORDERED: ONDANSETRON 2MG/ML, 2ML ONE (14:06)
[2017-07-11] MEDS ORDERED: DEXAMETHASONE 4 MG/ML, 1ML ONE (14:06)
[2017-07-11] MEDS ORDERED: BALANCED SALT OPHTH IRRIG SOLN 18ML ONE (14:25)
[2017-07-11] MEDS ORDERED: EPINEPHRINE TOPICAL SOLN 1 MG/ML, 30ML TP ONE (15:20)
[2017-07-11] MEDS ORDERED: BALANCED SALT OPHTH IRRIG SOLN 18ML IO ONE (15:23)
[2017-07-11] MEDS ORDERED: BACITRACIN 50,000 UNIT ONE (15:37)
[2017-07-11] MEDS ORDERED: FENTANYL PF 100 MCG/2ML ONE ×2 (15:52)
[2017-07-11] MEDS ORDERED: MEPERIDINE/PF 50 MG/ML ONE (17:32)
[2017-07-11] MEDS: MORPHINE SULFATE 4 MG/ML, 1ML IVPush PRN (20:44)
[2017-07-11] MEDS ORDERED: SODIUM CHLORIDE NASAL SPRAY 45ML BOTTLE NAS PRN (22:30)
[2017-07-11] MEDS: hydrOXyzine 50MG TABLET PO SCH (22:38)
[2017-07-11] MEDS: AMITRIPTYLINE 10 MG TABLET PO SCH (22:38)
[2017-07-11] MEDS: TOPIRAMATE 100 MG TABLET PO SCH (22:38)
[2017-07-11] MEDS: TRAZODONE 100MG TABLET PO PRN (22:38)
[2017-07-11] MEDS: LACTATED RINGERS 1,000 ML IV SCH (22:39)
[2017-07-11] MEDS: ARIPIPRAZOLE 15 MG TABLET PO SCH (22:39)
[2017-07-12] MEDS: SODIUM CHLORIDE NASAL SPRAY 45ML BOTTLE NAS PRN ×2 (01:02→05:11)
[2017-07-12 01:15] VITALS: BP 99/65
[2017-07-12 07:55] VITALS: BP 85/51
[2017-07-12] MEDS: LACTATED RINGERS 1,000 ML IV SCH ×2 (08:00→20:30)
[2017-07-12] MEDS: POLYETHYLENE GLYCOL 17 GM PACKET PO SCH (08:33)
[2017-07-12] MEDS: hydrOXyzine 50MG TABLET PO SCH ×2 (08:33→20:25)
[2017-07-12 09:41] VITALS: BP 90/57
[2017-07-12] MEDS: MORPHINE SULFATE 4 MG/ML, 1ML IVPush PRN (14:03)
[2017-07-12] MEDS: ERTAPENEM 1 GM in SODIUM CHLORIDE 0.9% 50 ML IV SCH (14:03)
[2017-07-12 20:08] VITALS: BP 88/58
[2017-07-12] MEDS: TRAZODONE 100MG TABLET PO PRN (20:24)
[2017-07-12] MEDS: AMITRIPTYLINE 10 MG TABLET PO SCH (20:24)
[2017-07-12] MEDS: TOPIRAMATE 100 MG TABLET PO SCH (20:24)
[2017-07-12] MEDS: ARIPIPRAZOLE 15 MG TABLET PO SCH (20:25)
[2017-07-12 20:44] VITALS: BP 104/64
[2017-07-13 03:22] VITALS: BP 97/61
[2017-07-13 07:55] VITALS: BP 91/61
[2017-07-13] MEDS: LACTATED RINGERS 1,000 ML IV SCH (09:00)
[2017-07-13] MEDS: hydrOXyzine 50MG TABLET PO SCH (09:02)
[2017-07-13] MEDS: POLYETHYLENE GLYCOL 17 GM PACKET PO SCH (09:02)
[2017-07-13 13:31] VITALS: BP 96/61
[2017-07-13] MEDS ORDERED: IBUPROFEN 200 MG TABLET PO ONE (14:30)
[2017-07-13] MEDS: ERTAPENEM 1 GM in SODIUM CHLORIDE 0.9% 50 ML IV SCH (14:48)
[2017-07-13] MEDS ORDERED: HYDR-3240 PO (16:27)
[2017-07-13 17:26] VITALS: BP 91/60
== END 2017-07-13 17:34 | disposition home or self-care (01) ==
LOC: OUT 10:57 → 4NOR 18:54 → OUT 23:11 → 4NOR 23:12
PROVIDERS: ADMIT Otolaryngology; ATTEND Otolaryngology
DX: J32.1 Chronic frontal sinusitis (principal); J32.0 Chronic maxillary sinusitis; J32.4 Chronic pansinusitis; L03.213 Periorbital cellulitis
CPT/HCPCS: 31254; 31256; 88304; 88311; 96365; 96375; 96376; G0378; J0171; J0330; J1100; J1335; J1885; J2175; J2250; J2405; J2704; J3010; J3490; J7120; S1090

== ENCOUNTER 2017-07-18 13:50 | Emergency (ER) | payer OTHER ==
[~2017-07-18] VITALS: Ht 167.6 cm; Wt 69.4 kg
[~2017-07-18 13:50] MED LIST changes: -BACITRACIN OINT 500U/GM, 15 GM ONE; -EPINEPHRINE 1 MG/ML, 1ML ONE; -FLUORESCEIN OPHTHALMIC 1 MG STRIP ONE; +HYDR-3240 PO; -LIDOCAINE 1%, 20ML ONE; -OXYMETAZOLINE NASAL SPRAY 0.05%, 15ML ONE
[2017-07-18] MEDS ORDERED: SODIUM CHLORIDE 0.9% 1,000ML IVBOLUS ONE (14:30)
[2017-07-18 15:26] VITALS: BP 123/78
== END 2017-07-18 15:28 | disposition home or self-care (01) ==
LOC: ED 15:00
DX: H57.11 Ocular pain, right eye (principal)
CPT/HCPCS: 99281

== ENCOUNTER 2018-05-21 18:09 | Emergency (ER) | payer OTHER ==
[~2018-05-21] VITALS: Ht 167.6 cm; Wt 83.1 kg
[~2018-05-21 18:09] MED LIST changes: -SENN1TAB7 PO; +SENN1TAB8 PO; +TRAZ-137 PO; -TRAZ100T15 PO
[2018-05-21 18:38] LABS: MEAN CORPUSCULAR HEMOGLOBIN 22.4 pg (27.0-34.8); MEAN CORPUSCULAR HGB CONC 30.8 g/dL (32.4-35.8); MEAN CORPUSCULAR VOLUME 72.9 fL (80-100); MEAN PLATELET VOLUME 8.6 fL (7.4-10.4); PLATELET COUNT 280 x10^3/uL (130-400); RED BLOOD COUNT 4.19 x10^6/uL (3.82-5.3); RED CELL DISTRIBUTION WIDTH 33.5 % (9.6-15.2)
[2018-05-21 18:47] LABS: ALANINE AMINOTRANSFERASE 18 U/L (12-78); ALBUMIN 3.5 g/dL (3.4-5.0); ANION GAP 4 mmol/L (5-15); CALCIUM 8.8 mg/dL (8.5-10.1); CHLORIDE 113 mmol/L (98-107); CREATININE 0.69 mg/dL (0.55-1.02)
[2018-05-21 18:52] LABS: ALKALINE PHOSPHATASE 91 U/L (45-117); BILIRUBIN,TOTAL 0.1 mg/dL (0.2-1.0); TOTAL PROTEIN 6.8 g/dL (6.4-8.2)
[2018-05-21 19:00] LABS: BASOPHILS # (AUTO) 0.05 x10^3/uL (0-0.1); BASOPHILS % (AUTO) 1 % (0-1); EOSINOPHILS # (AUTO) 0.45 x10^3/uL (0-0.4); EOSINOPHILS % (AUTO) 5 % (1-7); LYMPHOCYTES # (AUTO) 2.38 x10^3/uL (1-3.4); LYMPHOCYTES % (AUTO) 24 % (22-44); MD MORPH REVIEW ONLY; MONOCYTES # (AUTO) 0.57 x10^3/uL (0.2-0.8); MONOCYTES % (AUTO) 6 % (2-9); NEUTROPHILS # (AUTO) 6.47 x10^3/uL (1.8-6.8); NEUTROPHILS % (AUTO) 65 % (42-75)
[2018-05-21 19:02] LABS: ANISOCYTOSIS 2+; HYPOCHROMIA 1+; MICROCYTOSIS 1+
[2018-05-21 19:03] LABS: POLYCHROMASIA 1+
[2018-05-21 19:04] LABS: OVALOCYTES 1+
[2018-05-21 19:05] LABS: <PLATELET ESTIMATE> ADEQUATE; <PLT MORPHOLOGY> NORMAL PLT MORPH; TEAR DROPS 1+
[2018-05-21] MEDS ORDERED: ONDANSETRON ODT 4 MG ONE (19:51)
[2018-05-21] MEDS ORDERED: HYDROcodone/APAP 5/325 TABLET ONE (19:52)
[2018-05-21] MEDS ORDERED: ONDANSETRON ODT 4 MG PO ONE (20:00)
[2018-05-21] MEDS ORDERED: HYDROcodone/APAP 5/325 TABLET PO ONE (20:00)
[2018-05-21 20:03] LABS: MICROSCOPIC NOT IND
[2018-05-21 20:05] LABS: CULTURE INDICATED? NO
--- NOTE | 2018-05-21 20:16 | NUR ---
PTS CHART UP FOR RECHECK
[2018-05-21 20:55] VITALS: BP 122/50
== END 2018-05-21 20:57 | disposition home or self-care (01) ==
LOC: ED 20:30
DX: R10.11 Right upper quadrant pain (principal); R11.0 Nausea
CPT/HCPCS: 36415; 71046; 76700; 80053; 81003; 83690; 83880; 84703; 85025; 93005; 99284; Q0162

== ENCOUNTER 2018-07-03 10:55 | Emergency (ER) | payer OTHER ==
[~2018-07-03] VITALS: Ht 167.6 cm; Wt 83.6 kg
[~2018-07-03 10:55] MED LIST changes: +OMEP40CA6 PO
[2018-07-03 12:01] LABS: ANION GAP 6 mmol/L (5-15); CHLORIDE 110 mmol/L (98-107); CREATININE 0.84 mg/dL (0.55-1.02)
[2018-07-03 12:02] LABS: MEAN CORPUSCULAR HGB CONC 30.5 g/dL (32.4-35.8); MEAN CORPUSCULAR VOLUME 68.9 fL (80-100); MEAN PLATELET VOLUME 8.5 fL (7.4-10.4); PLATELET COUNT 822 x10^3/uL (130-400); RED BLOOD COUNT 5.34 x10^6/uL (3.82-5.3); RED CELL DISTRIBUTION WIDTH 28.4 % (9.6-15.2)
--- NOTE | 2018-07-03 12:07 | NUR ---
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
--- NOTE | 2018-07-03 12:21 | NUR ---
MD PENA ON ARRIVAL TO ROOM. PT STATES SHE FEELS LIGHTHEADED AT THIS TIME. AT BEDSIDE
[2018-07-03 12:26] LABS: ANISOCYTOSIS 1+; BASOPHILS # (AUTO) 0.03 x10^3/uL (0-0.1); BASOPHILS % (AUTO) 0 % (0-1); EOSINOPHILS # (AUTO) 0.25 x10^3/uL (0-0.4); EOSINOPHILS % (AUTO) 3 % (1-7); LYMPHOCYTES % (AUTO) 27 % (22-44); MD MORPH REVIEW ONLY; MICROCYTOSIS 2+; MONOCYTES % (AUTO) 5 % (2-9); NEUTROPHILS # (AUTO) 5.01 x10^3/uL (1.8-6.8); NEUTROPHILS % (AUTO) 64 % (42-75)
[2018-07-03 12:27] LABS: <PLATELET ESTIMATE> INCREASED; LARGE PLATELETS 1+; OVALOCYTES 1+; POLYCHROMASIA 1+; TEAR DROPS 1+
--- NOTE | 2018-07-03 13:17 | NUR ---
PT. IS RESTING WITH THE CP MONITOR IN PLACE. VSS. PT. HAS NO CONCERNS AT THIS TIME.
--- NOTE | 2018-07-03 14:01 | NUR ---
PT. WAS GIVEN DISCHARGE INSTRUCTIONS WITH UNDERSTANDING VERBALIZED ALONG WITH WILLINGNESS TO COMPLY. PT. WAS AMBULATORY TO THE DISCHARGE DESK. VSS.
[2018-07-03 14:02] VITALS: BP 108/56
== END 2018-07-03 14:04 | disposition home or self-care (01) ==
LOC: ED 13:24
DX: R55 Syncope and collapse (principal)
CPT/HCPCS: 36415; 80048; 82040; 84703; 85025; 93005; 99284

== ENCOUNTER 2018-11-02 16:37 | Emergency (ER) | payer OTHER ==
[~2018-11-02] VITALS: Ht 167.6 cm; Wt 77.7 kg
[~2018-11-02 16:37] MED LIST changes: +SENN-177 PO; -SENN1TAB8 PO
[2018-11-02 16:39] VITALS: BP 145/85
[2018-11-02] MEDS ORDERED: KETOROLAC 30 MG/1 ML ONE (17:28)
[2018-11-02] MEDS ORDERED: KETOROLAC 30 MG/1 ML IM ONE (17:30)
== END 2018-11-02 17:35 | disposition home or self-care (01) ==
LOC: ED 17:26
DX: L55.0 Sunburn of first degree (principal)
CPT/HCPCS: 96372; 99283; J1885

== ENCOUNTER → 2019-03-04 | Outpatient (CLI) | payer OTHER ==
[~2019-03-04] MED LIST changes: -HYDR-3307 PO; +HYDR-36 PO; +OMEP40CA42 PO; -OMEP40CA6 PO
== END | disposition home or self-care (01) ==
LOC: CFH 08:28
PROVIDERS: ATTEND Internal Medicine Cardiovascular Disease
DX: R55 Syncope and collapse (principal)
CPT/HCPCS: 93306

== ENCOUNTER 2020-05-09 12:03 | Emergency (ER) | payer OTHER ==
[~2020-05-09] VITALS: Ht 167.6 cm; Wt 56.6 kg
[~2020-05-09 12:03] MED LIST changes: +HYDR-3246 PO; -HYDR-36 PO; -HYDR50TA13 PO; +HYDR50TA99 PO; -RISP1TAB3 PO; +RISP1TAB90 PO; -TRAZ-137 PO; +TRAZ-175 PO
[2020-05-09 12:20] VITALS: BP 133/74
--- NOTE | 2020-05-09 14:27 | NUR ---
PT CAME IN CO OF "SINUS PRESSURE AND POP FOR THE PAST 2-3 WEEKS". PT HAS HX OF EXTENSIVE SINUS SURGIES IN THE PAST. [facility]. FORREST PROVIDED
== END 2020-05-09 14:54 | disposition home or self-care (01) ==
LOC: ED 14:00
DX: J32.0 Chronic maxillary sinusitis (principal); Z90.710 Acquired absence of both cervix and uterus
CPT/HCPCS: 70486; 99284